=== PATIENT | male | born 1955 | race Caucasian/White ===

== ENCOUNTER 2017-12-03 07:30 | Inpatient (IN) | payer OTHER ==
--- NOTE | 2017-12-01 09:45 | Pre-op HX & Phy Repo 2 SIG ---
DATE OF ADMISSION: 12/03/2017 HISTORY OF PRESENT ILLNESS: The patient is a 62-year-old male in overall good health with a malfunctioning Kock pouch continent ileostomy with difficulty with intubation and incontinence. This has been progressive during the past year. He does not have symptoms of pouchitis, but must intubate every two hours and during the night to help decrease the incontinence. His output is variable in consistency. He also has a parastomal hernia. The patient developed ulcerative colitis at age 15 in 1969. In 1988 he underwent total colectomy and creation of a Kock pouch. He later developed incontinence and in 1996 underwent surgery to repair the Nipple valve with a mesh sling. In 2001 he underwent resection of his original Kock pouch because of recurrent incontinence and a new pouch was created with another mesh sling. In 2002, he underwent revision of the stoma for stricture. All of these operations were done in [place]. In 2009 he was operated on here with creation of a new valve and stoma with preservation of the Kock pouch and temporary catheter gastrostomy. He had, at that time, new complete slipping of the valve of the Kock pouch. Following that surgery, the patient became aware of a bulge above the stoma approximately one year later. This has progressed as well, but does not seem to be the cause of his difficulty with intubation and incontinence, which is likely a slipped valve. PAST MEDICAL HISTORY/MEDICATIONS: Flomax. ALLERGIES: None. OPERATIONS: See above with complete list at the end of this dictation. PHYSICAL EXAMINATION: VITAL SIGNS: A 5 feet 11 inches, 188 pounds. [place] and will be examined upon arrival and dictated separately. IMPRESSION: 1. Malfunctioning Kock pouch. 2. History of ulcerative colitis. 3. Parastomal hernia. 4. STATUS POST MULTIPLE ABDOMINAL OPERATIONS: 1. Proctocolectomy and Kock pouch in 1982. 2. Revision of Kock pouch slipped valve with mesh sling in 1996. 3. Resection of original Kock pouch and creation of new Kock pouch with mesh sling 2001. 4. Revision of stoma stenosis 2002. 5. Laparotomy with creation of new valve and stoma with preservation of Kock pouch 2009. PLAN: The patient will be admitted requiring a day in the hospital before surgery for insertion of a dual lumen PICC line, bowel prep, pouch endoscopy, continuous decompression of his Kock pouch and intravenous antibiotics started overnight with intravenous hydration on the day of admission continuing until surgery. I had a complete discussion with the patient regarding the nature of his condition, the nature of the pouch endoscopy, which does not require any anesthesia or sedation, and the need for surgical revision and repair of parastomal hernia. I will have a complete detailed discussion in person when he arrives from [place] of state. Aakash Saeed M.D. DR: LATRICE JOB#: [id number] CC: AMADOU
[~2017-12-03] VITALS: Ht 180.3 cm; Wt 80.7 kg
[2017-12-03] MEDS ORDERED: Lidocaine 1% Plain 30 ml INJ PRN (09:30)
[2017-12-03] MEDS ORDERED: Heparin 2000 units/Ns 1000ml INJ PRN (09:30)
--- NOTE | 2017-12-03 11:08 | Pre-Procedure Note/Attestation ---
Pre-Procedure Note/Attestation Complete Prior to Procedure Planned Procedure: not applicable Procedure Narrative: Kock pouch endoscopy Indications for Procedure Pre-Operative Diagnosis: malfunctioning Kock Pouch Attestation I attest that I discussed the nature of the procedure; its benefits; risks and complications; and alternatives (and the risks and benefits of such alternatives ), prior to the procedure, with the patient (or the patient's legal inside account representative). I attest that, if there was a reasonable possibility of needing a blood transfusion, the patient (or the patient's legal inside account representative) was given the [facility] standardized written summary, pursuant to the Jigar [place] Blood Safety Act ([place] Health and Safety Code # 1645, as amended). I attest that I re-evaluated the patient just prior to the surgery and that there has been no change in the patient's H&P, except as documented below:none Aakash Saeed MD Dec 03, 2017 11:08
[2017-12-03 11:42] LABS: BASOPHILS % (AUTO) 1.3 % (0.0-2.0); EOSINOPHILS % (AUTO) 0.4 % (0.0-3.0); HEMOGLOBIN 16.7 G/DL (14.2-18.0); LYMPHOCYTES % (AUTO) 15.1 % (20.0-45.0); MEAN CORPUSCULAR VOLUME 91 FL (80-99); MONOCYTES % (AUTO) 6.5 % (1.0-10.0); NEUTROPHILS % (AUTO) 76.7 % (45.0-75.0); PLATELET COUNT 261 K/UL (150-450); RED BLOOD COUNT 5.37 M/UL (4.70-6.10); RED CELL DISTRIBUTION WIDTH 12.5 % (11.6-14.8); WHITE BLOOD COUNT 6.4 K/UL (4.8-10.8)
[2017-12-03 11:51] LABS: ANION GAP 11 mmol/L (5-15); BLOOD UREA NITROGEN 14 mg/dL (7-18); CALCIUM 9.3 MG/DL (8.5-10.1); CARBON DIOXIDE 25 MMOL/L (21-32); CHLORIDE 102 MMOL/L (98-107); CREATININE 1.1 MG/DL (0.55-1.30); POTASSIUM 3.6 MMOL/L (3.5-5.1); SODIUM 138 MMOL/L (136-145)
--- NOTE | 2017-12-03 11:51 | Diagnostic Imaging Report ---
Indication: Cough Technique: One view of the chest Comparison: none Findings: Lungs are equivocally mildly hyperinflated. Lungs and pleural spaces are clear. Heart size is normal. Impression: No acute process
[2017-12-03 12:02] LABS: ALANINE AMINOTRANSFERASE 46 U/L (12-78); ALBUMIN 3.6 G/DL (3.4-5.0); ALBUMIN/GLOBULIN RATIO 0.9 (1.0-2.7); ALKALINE PHOSPHATASE 78 U/L (46-116); ASPARTATE AMINO TRANSFERASE 35 U/L (15-37); BILIRUBIN,TOTAL 1.1 MG/DL (0.2-1.0)
[2017-12-03 12:08] LABS: BILIRUBIN,DIRECT 0.2 MG/DL (0.0-0.3)
[2017-12-03 12:15] LABS: APPEARANCE,URINE CLEAR; BILIRUBIN, URINE NEGATIVE (NEGATIVE); GLUCOSE, URINE (UA) NEGATIVE (NEGATIVE); KETONES,URINE 3+ (NEGATIVE); LEUKOCYTE ESTERASE ,URINE NEGATIVE (NEGATIVE); NITRITE,URINE NEGATIVE (NEGATIVE); PH,URINE 6 (4.5-8.0); PROTEIN,URINE 2+ (NEGATIVE); UROBILINOGEN,URINE NORMAL MG/DL (0.0-1.0)
[2017-12-03 12:23] LABS: COLOR,URINE YELLOW
--- NOTE | 2017-12-03 13:23 | Brief Operative Note ---
Immediate Post Operative Note Operative Note Pre-op Diagnosis: malfunctioning Kock Pouch Procedure: Kock pouch endoscopy Post-op Diagnosis: partially slipped valve of Kock pouch Post-op Diagnosis: same as pre-op Findings: consistent w/pre-op dx studies Surgeon: antoni Anesthesia: other - none Specimen: none Complications: none Condition: stable Fluids: none Estimated Blood Loss: none Drains: other - 26 Fr Florence to Kock Pouch Implant(s) used?: No Aakash Saeed MD Dec 03, 2017 13:23
--- NOTE | 2017-12-03 14:08 | General Progress Note ---
Progress Note Progress Note H&P dictated. Small parastomal hernia of Kock pouch in RLQ. Kock pouch endoscopy: partially slipped valve, no pouchitis. Plan: Surgery in Aakash Bowen MD Dec 03, 2017 14:08
[2017-12-03] MEDS: Neomycin Sulfate 500mg Tab ORAL SCH ×3 (15:05→20:16)
--- NOTE | 2017-12-03 15:05 | Anethesia Preoperative Eval ---
Anesthesia Pre-op PMH/ROS General Date of Evaluation: Dec 03, 2017 Time of Evaluation: 16:25 Anesthesiologist: Madhavi ASA Score: ASA 2 Mallampati Score Class I : Soft palate, uvula, fauces, pillars visible Class II: Soft palate, uvula, fauces visible Class III: Soft palate, base of uvula visible Class IV: Only hard plate visible Mallampati Classification: Class II Surgeon: Darlin Diagnosis: Parastomal hernia, pouch stenosis Surgical Procedure: Parastomal herniorhhaphy Allergies: Coded Allergies: No Known Allergies (Verified Allergy, Unknown, 08/02/09) Medications: see eMAR Past Medical History Cardiovascular: Denies: HTN, CAD, OH, valve dz, arrhythmia, other Pulmonary: Denies: asthma, COPD, LOUISE, other Gastrointestinal/Genitourinary: Denies: GERD, CRI, ESRD, other Neurologic/Psychiatric: Denies: dementia, CVA, depression/anxiety, TIA, other Endocrine: Denies: DM, hypothyroidism, steroids, other HEENT: Denies: cataract (L), cataract (R), glaucoma, REDDING (L), REDDING (R), other Hematology/Immune: Denies: anemia, DVT, bleeding disorder, other Musculoskeletal/Integumentary: Denies: OA, RA, DJD, DDD, edema, other PMH Narrative: Ulcerative colitis PSxH Narrative: Multiple abdominal surgeries including colectomy, ileostomy with Kock pouch and revisions. Anesthesia Pre-op Phys. Exam Physician Exam Last Vital Signs Date Time Temp Pulse Resp B/P (MAP) Pulse Ox O2 Delivery O2 Flow Rate FiO2 12/03/17 12:29 Room Air Constitutional: NAD Neurologic: CN 2-12 intact Cardiovascular: RRR, no M/R/G Respiratory: CTA Gastrointestinal: S/NT/ND Airway Exam Mallampati Score: Class II MO: full ROM: full Teeth: intact Anesthesia Pre-op A/P Labs Hematology Test 12/03/17 11:10 White Blood Count 6.4 K/UL (4.8-10.8) Red Blood Count 5.37 M/UL (4.70-6.10) Hemoglobin 16.7 G/DL (14.2-18.0) Hematocrit 49.0 % (42.0-52.0) Mean Corpuscular Volume 91 FL (80-99) Mean Corpuscular Hemoglobin 31.1 PG (27.0-31.0) H Mean Corpuscular Hemoglobin Concent 34.0 G/DL (32.0-36.0) Red Cell Distribution Width 12.5 % (11.6-14.8) Platelet Count 261 K/UL (150-450) Mean Platelet Volume 5.8 FL (6.5-10.1) L Neutrophils (%) (Auto) 76.7 % (45.0-75.0) H Lymphocytes (%) (Auto) 15.1 % (20.0-45.0) L Monocytes (%) (Auto) 6.5 % (1.0-10.0) Eosinophils (%) (Auto) 0.4 % (0.0-3.0) Basophils (%) (Auto) 1.3 % (0.0-2.0) Coagulation Test 12/03/17 11:10 Prothrombin Time 11.0 SEC (9.30-11.50) Prothromb Time International Ratio 1.0 (0.9-1.1) Activated Partial Thromboplast Time 27 SEC (23-33) Chemistry Test 12/03/17 11:10 Sodium Level 138 MMOL/L (136-145) Potassium Level 3.6 MMOL/L (3.5-5.1) Chloride Level 102 MMOL/L (98-107) Carbon Dioxide Level 25 MMOL/L (21-32) Anion Gap 11 mmol/L (5-15) Blood Urea Nitrogen 14 mg/dL (7-18) Creatinine 1.1 MG/DL (0.55-1.30) Estimat Glomerular Filtration Rate > 60 mL/min (>60) Glucose Level 89 MG/DL (74-106) Calcium Level 9.3 MG/DL (8.5-10.1) Total Bilirubin 1.1 MG/DL (0.2-1.0) H Direct Bilirubin 0.2 MG/DL (0.0-0.3) Aspartate Amino Transf (AST/SGOT) 35 U/L (15-37) Alanine Aminotransferase (ALT/SGPT) 46 U/L (12-78) Alkaline Phosphatase 78 U/L (46-116) Total Protein 7.4 G/DL (6.4-8.2) Albumin 3.6 G/DL (3.4-5.0) Globulin 3.8 g/dL Albumin/Globulin Ratio 0.9 (1.0-2.7) L Studies Pre-op Studies: EKG Risk Assessment & Plan Assessment: Healthy male with h/o CAD (s/p OH and coronary stents) for revision and repair of parastomal hernia. Plan: GETA Status Change Before Surgery: Jigar Mcmahan MD Dec 03, 2017 15:05
--- NOTE | 2017-12-03 15:28 | Pre-Procedure Note/Attestation ---
Pre-Procedure Note/Attestation Complete Prior to Procedure Planned Procedure: not applicable Procedure Narrative: PICC Indications for Procedure Pre-Operative Diagnosis: needs hat model IV access Attestation I attest that I discussed the nature of the procedure; its benefits; risks and complications; and alternatives (and the risks and benefits of such alternatives ), prior to the procedure, with the patient (or the patient's legal advertising sales representative). I attest that, if there was a reasonable possibility of needing a blood transfusion, the patient (or the patient's legal advertising sales representative) was given the [facility] standardized written summary, pursuant to the Jigar [place] Blood Safety Act ([place] Health and Safety Code # 1645, as amended). I attest that I re-evaluated the patient just prior to the surgery and that there has been no change in the patient's H&P, except as documented below: Chris Mckeon MD Dec 03, 2017 15:28
--- NOTE | 2017-12-03 15:32 | Brief Operative Note ---
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
--- NOTE | 2017-12-03 15:36 | Diagnostic Imaging Report ---
Indications: Needs long-term IV access Technique: Ultrasound confirms patent compressible left basilic vein. Total sterile technique, including sterile probe cover and sterile gel, hat, mask, sterile gown, large sterile drape, and preparation with 2% chlorhexidine utilized. Local anesthesia with 1% lidocaine. Under real-time ultrasound guidance, puncture basilic vein using 21-gauge needle, documented and archived, passage 0.018 guidewire under direct fluoroscopy, which was used to determine appropriate catheter length, exchange for 5 Bulgarian peel-away sheath. 5 Bulgarian Bard dual-lumen power PICC cut to 43 cm. It was inserted through the peel-away sheath. Peel-away sheath and guidewire removed. Catheter fixed to the skin. Both catheter ports aspirated and flushed. Patient tolerated procedure well, without immediate complication. Digital radiograph documents satisfactory catheter tip position, at the cavoatrial junction. Total fluoroscopy time 0.2 minutes. Total dose area product 6. dGycm2 Total number of images: 1 Impression: Successful placement of left arm PICC under sonographic and fluoroscopic guidance, as described above.
[2017-12-03] MEDS: D5 1/2NS w/KCl 20mEq 1,000 ML IV SCH (17:49)
--- NOTE | 2017-12-03 18:14 | Procedure Note ---
DATE OF PROCEDURE: 12/03/2017 SURGEON: Aakash Saeed M.D. DATE OF ENDOSCOPY: 12/03/2017 ENDOSCOPIST: Aakash Saeed M.D. ANESTHESIA: None. SEDATION: None. PRE-ENDOSCOPY DIAGNOSES: 1. Malfunctioning Kock pouch continent ileostomy with difficulty with intubation and incontinence. 2. Small parastomal hernia. 3. History of ulcerative colitis. 4. Status post multiple abdominal operations including proctocolectomy and Kock pouch in 1982 with revision in 1996 and resection of original Kock pouch with creation of new Kock pouch in 2001 with creation of new valve and stoma in 2009. POST-ENDOSCOPY DIAGNOSES: 1. Malfunctioning Kock pouch continent ileostomy with difficulty with intubation and incontinence. 2. Small parastomal hernia. 3. History of ulcerative colitis. 4. Status post multiple abdominal operations including proctocolectomy and Kock pouch in 1982 with revision in 1996 and resection of original Kock pouch with creation of new Kock pouch in 2001 with creation of new valve and stoma in 2009. ENDOSCOPY PERFORMED: Kock pouch endoscopy. FINDINGS: A partially slipped nipple valve with minimal inflammation of pouch mucosa. DESCRIPTION OF PROCEDURE: The patient was positioned supine in the GI lab without any anesthesia or sedation given or required. Using a GIF-P140 endoscope, the stoma was entered and with some angulation, the pouch was entered. The distance to the tip of the valve was approximately 8 cm. The pouch was distensible. There was minimal evidence for inflammation or pouchitis and no ulcerations. Retroflexed views revealed a partially slipped nipple valve. Withdrawal views confirmed the above findings. Following the endoscopy, I could not insert a 28-Faroese Florence catheter into the pouch, but did insert a 26-Faroese Florence, taped to the skin, and connected to a gravity drainage bag. The patient tolerated the endoscopy well and will have surgery in the morning. Aakash Saeed M.D. DR: Anu JOB#: [id number] CC: AMADOU
[2017-12-03] MEDS: Tamsulosin 0.4mg cap ORAL SCH (20:16)
[2017-12-03] MEDS: Dyna-Hex 2% Top Sol 2oz TOPIC SCH (20:17)
[2017-12-03 20:34] VITALS: BP 124/74
[2017-12-03] MEDS: Ampicillin/Sulbactam Sod 3 GM in NS 110 ML IV SCH (23:54)
[2017-12-04] VITALS (17 sets, daily range): BP systolic 96–129; BP diastolic 51–77
[2017-12-04] MEDS ORDERED: Ketorolac 30mg Inj IV ONE (00:30)
[2017-12-04] MEDS: D5 1/2NS w/KCl 20mEq 1,000 ML IV SCH (04:09)
[2017-12-04] MEDS ORDERED: Heparin 5000 units/ml inj SUBQ SCH (05:30)
[2017-12-04] MEDS: Ampicillin/Sulbactam Sod 3 GM in NS 110 ML IV SCH ×3 (05:45→18:09)
--- NOTE | 2017-12-04 06:30 | Pre-op HX & Phy Repo 2 SIG ---
DATE OF ADMISSION: 12/03/2017 Please see previously dictated history. The [place] and is examined. PHYSICAL EXAMINATION: GENERAL: He is well developed, well nourished. VITAL SIGNS: Stable vital signs, 5 feet 11 inches, approximately 188 pounds. HEENT: Within normal limits. LUNGS: Clear. HEART: Regular rhythm. BREASTS: Without masses. ABDOMEN: Soft and flat. There is a long left paramedian incision with two small incisional hernias in the mid portion. The stoma of the Kock pouch continent ileostomy is low in the right lower quadrant with a very small parastomal hernia. GENITOURINARY: Testes and scrotum within normal limits. RECTAL: Status post proctectomy. EXTREMITIES: Without edema. NEUROLOGIC: Physiologic. IMPRESSION: 1. Malfunctioning Kock pouch continent ileostomy with difficulty with intubation and incontinence. 2. Small parastomal hernia. 3. History of ulcerative colitis. 4. STATUS POST MULTIPLE ABDOMINAL OPERATIONS: a. Proctocolectomy and Kock pouch in 1982. b. Revision of Kock pouch slipped valve with mesh sling in 1996. c. Resection of original Kock pouch and creation of new Kock pouch with mesh sling in 2001. d. Revision of stomal stenosis 2002 (all these operations were done in [place]) e. Laparotomy with creation of new valve and stoma with preservation of Kock pouch 2009. PLAN: The patient is going to undergo pouch endoscopy without requiring any sedation or anesthesia and an indwelling catheter will be left in his pouch to continuous drainage. He will have bowel prep and intravenous hydration via a dual lumen PICC line during the prep and intravenous antibiotics started overnight, continue in the morning of surgery as well as preoperative subcutaneous heparin. Operative findings will determine how extensive the surgery will be, whether catheter gastrostomy will be necessary as well. I had a full discussion with the patient regarding the surgery, indications, alternatives, options, and risks including bleeding, infection, injury to adjacent structures or organs, recurrent difficulties with his Kock pouch, etc. All questions have been answered. He understands and agrees to proceed. Aakash Saeed M.D. DR: LATRICE JOB#: [id number] CC: AMADOU
[2017-12-04] MEDS ORDERED: Midazolam 2mg/2ml Inj ONE (06:59)
[2017-12-04] MEDS ORDERED: fentaNYL 100 mcg/2 mL IV ONE (06:59)
[2017-12-04] MEDS ORDERED: Propofol 200mg/20ml IV ONE ×2 (07:08→07:11)
[2017-12-04] MEDS ORDERED: Lidocaine 1% MPF 10mg/ml 5ml ONE (07:08)
[2017-12-04] MEDS ORDERED: Sodium Chloride 10ml vial INJ ONE (07:08)
--- NOTE | 2017-12-04 07:09 | Pre-Procedure Note/Attestation ---
Pre-Procedure Note/Attestation Complete Prior to Procedure Planned Procedure: not applicable Procedure Narrative: Revision of Kock Pouch and repair parastomal hernia Indications for Procedure Pre-Operative Diagnosis: malfunctioning Kock Pouch and parastomal hernia Attestation I attest that I discussed the nature of the procedure; its benefits; risks and complications; and alternatives (and the risks and benefits of such alternatives ), prior to the procedure, with the patient (or the patient's legal franchise sales representative). I attest that, if there was a reasonable possibility of needing a blood transfusion, the patient (or the patient's legal franchise sales representative) was given the [facility] Services standardized written summary, pursuant to the Jigar [place] Blood Safety Act ([place] Health and Safety Code # 1645, as amended). I attest that I re-evaluated the patient just prior to the surgery and that there has been no change in the patient's H&P, except as documented below:none Aakash Saeed MD Dec 04, 2017 07:09
[2017-12-04] MEDS ORDERED: Triple abx Irrig 1000ml IRRIG ONE (07:30)
[2017-12-04] MEDS ORDERED: NS Irrig 1000ml IRRIG ONE (07:30)
[2017-12-04] MEDS ORDERED: LR 1000ml 1,000 ML IVLG SCH (08:23)
[2017-12-04] MEDS ORDERED: DiphenhydrAMINE 50mg/ml Inj IVP PRN ×2 (08:30→10:30)
[2017-12-04] MEDS ORDERED: HYDROmorphone 1mg/ml Carpuject IVP PRN (08:30)
[2017-12-04] MEDS ORDERED: LORazepam Inj 2mg/ml 1ml IV PRN (08:30)
[2017-12-04] MEDS ORDERED: Meperidine 50mg/ml Inj(FOR RIGORS ONLY) IVP PRN (08:30)
--- NOTE | 2017-12-04 08:33 | Immediate Post-Op Evaluation ---
Immediate Post-Op Evalulation Immediate Post-Op Evalulation Procedure: Sahni pouch revision and parastomal herniorrhaphy. Date of Evaluation: Dec 04, 2017 Time of Evaluation: 11:48 IV Fluids: 2000 Estimated Blood Loss: 50 Blood Pressure Systolic: 128 Blood Pressure Diastolic: 72 Pulse Rate: 75 Respiratory Rate: 16 O2 Sat by Pulse Oximetry: 99 Pain Score (1-10): 2 Nausea: No Vomiting: No Complications No complication Patient Status: awake, patent, extubated, none Hydration Status: adequate Drug: Patient on Unasyn and Flagyl...next dose at 12:00PM Jigar Hendrickson MD Dec 04, 2017 08:33
[2017-12-04] MEDS ORDERED: Rate Change PCA 1 Each MISC PRN (10:30)
[2017-12-04] MEDS ORDERED: PCA Education Pamphlet MISC ONE (10:30)
[2017-12-04] MEDS ORDERED: LORazepam 1mg tab SL PRN (10:30)
[2017-12-04] MEDS ORDERED: PCA HYDROmorphone 1mg/ml 30 ML IV PRN (10:30)
[2017-12-04] MEDS ORDERED: Acetaminophen 650mg/20.3ml ORAL PRN (10:30)
[2017-12-04] MEDS ORDERED: Naloxone 0.4mg/ml Inj IVP PRN (10:30)
--- NOTE | 2017-12-04 10:35 | Immediate Post-Op Evaluation ---
Immediate Post-Op Evalulation Immediate Post-Op Evalulation Procedure: Sahni pouch revision and parastomal herniorrhaphy. Date of Evaluation: Dec 04, 2017 Time of Evaluation: 10:34 IV Fluids: 1200 Blood Products: none Estimated Blood Loss: 50 Urinary Output: 600 Blood Pressure Systolic: 98 Blood Pressure Diastolic: 56 Pulse Rate: 58 Respiratory Rate: 20 O2 Sat by Pulse Oximetry: 99 Temperature (Fahrenheit): 97.6 Pain Score (1-10): 1 Nausea: No Vomiting: No Complications none Patient Status: reacts, patent, extubated, none Hydration Status: adequate Parviz Justin MD Dec 04, 2017 10:35
--- NOTE | 2017-12-04 10:35 | Brief Operative Note ---
Immediate Post Operative Note Operative Note Pre-op Diagnosis: malfunctioning Kock Pouch and parastomal hernia Procedure: Revision of Kock pouch and repair parastomal hernia Post-op Diagnosis: partially slipped valve of Kock pouch and small parastomal hernia Post-op Diagnosis: same as pre-op Findings: consistent w/pre-op dx studies Surgeon: antoni Brim Pouncing Machine Operator: corinne Anesthesiologist: dontrell Anesthesia: general Specimen: yes - stoma Complications: none Condition: stable Fluids: see anesthesia record Estimated Blood Loss: minimal Drains: other - 28 casiano to Kock pouch Implant(s) used?: No Aakash Saeed MD Dec 04, 2017 10:35
[2017-12-04] MEDS: D5 1/4NS w/KCl 20mEq 1,000 ML IV SCH (12:50)
[2017-12-04] MEDS ORDERED: Lidocaine 1% MPF 10mg/ml 5ml INJ SCH (15:49)
--- NOTE | 2017-12-04 16:54 | General Progress Note ---
Progress Note Progress Note AVSS Comfortable with HARDNESS INSPECTOR Dilaudid. Had some bleeding from stoma - inspected and no bleeding at this time. Abdomen soft Imp. Stable with ileus Aakash Saeed MD Dec 04, 2017 16:53
[2017-12-04] MEDS: PCA shift volume MISC SCH (19:00)
--- NOTE | 2017-12-04 19:06 | Cardiology Report ---
APPROVED REPORT EKG Measurement Heart [id number] CO [id number] Normal sinus rhythm Rightward axis Borderline ECG
--- NOTE | 2017-12-04 20:00 | Operative Note - Dictated ---
DATE OF OPERATION: 12/04/2017 SURGEON: Aakash Saeed M.D. DUST MILL OPERATOR SURGEON: Tito Gamble M.D. ANESTHESIOLOGIST: Jigar Hendrickson M.D. TYPE OF ANESTHESIA: General endotracheal. PREOPERATIVE DIAGNOSES: 1. Malfunctioning Kock pouch with difficulty with intubation and incontinence due to valve desussception 2. Small parastomal hernia. 3. History of ulcerative colitis. 4. Status post multiple abdominal operations. 4.1. Proctocolectomy and Kock pouch in 1982. 4.2. Revision of Kock pouch slipped valve with mesh sling in 1996. 4.3. Resection of original Kock pouch and creation of new Kock pouch with mesh sling in 2001. 4.4. Revision of stoma stenosis in 2002. (all these operations were done in [place]) 4.5. Laparotomy with creation of new valve and stoma with preservation of Kock pouch in 2009. POSTOPERATIVE DIAGNOSES: 1. Malfunctioning Kock pouch with difficulty with intubation and incontinence due to valve desussception 2. Small parastomal hernia. 3. History of ulcerative colitis. 4. Status post multiple abdominal operations. 4.1. Proctocolectomy and Kock pouch in 1982. 4.2. Revision of Kock pouch slipped valve with mesh sling in 1996. 4.3. Resection of original Kock pouch and creation of new Kock pouch with mesh sling in 2001. 4.4. Revision of stoma stenosis in 2002. (all these operations were done in [place]) 4.5. Laparotomy with creation of new valve and stoma with preservation of Kock pouch in 2009. OPERATION PERFORMED: Laparotomy with revision of Kock pouch continent ileostomy with stabilization of valve, creation of collar, and repair of parastomal hernia. DESCRIPTION OF PROCEDURE: The patient was taken to the operating room and under general endotracheal anesthesia with sequential compression device stockings and Florence catheter in place, and having received preoperative intravenous antibiotics and subcutaneous heparin, the patient was prepped and draped in the usual fashion. The stoma low in the right lower quadrant was initially covered with Tegaderm. The patient had a long left paramedian incision which was reopened from the umbilicus to the pubis achieving hemostasis with cautery. There were no adhesions in the abdominal cavity. The liver and gallbladder were normal to inspection and palpation. The small bowel was all normal. The Kock pouch was readily elevated out of the pelvis. A catheter was manipulated through the stoma into the pouch observing a redundant access segment. The pouch was distended with 350 mL of saline with afferent bowel manual occlusion. Upon removing the catheter, there was obvious incontinence. The catheter was reintroduced and the pouch decompressed. In order to fully mobilize the pouch, I circumscribed the stoma with a transversely oriented elliptical incision bringing it with its mesentery into the abdominal cavity. Along the anterior wall of the pouch between stay sutures of 3-0 silk, a pouch enterotomy was created. The nipple valve was grasped with [place] clamps and was reformed just placing it on stretch to 5.0 cm. Keeping this on stretch and the access segment on stretch, the 28-[place] Florence catheter readily went through the stoma into the pouch in and out. In view of this somewhat small-capacity pouch and in view of this being the patient's second pouch, I felt it was important to preserve the pouch and intestinal length. The nipple valve was placed on stretch and with two small enterotomies on each side of the main pouch enterotomy, the PI-55 stapling device with 4.8 mm catarina was introduced through the enterotomy and then into the lumen of the valve and then fired to staple the valve to the anterior pouch wall. This was done through both of the smaller enterotomies. Again, the 28[place] Florence catheter passed readily into the pouch through the stoma. The two small enterotomies were each closed with continuous 3-0 chromic locking suture followed by 3-0 silk imbricating suture. The pouch enterotomy was closed with continuous locking 2-0 chromic followed by imbricating 3-0 silk. Now the afferent bowel was manually occluded and with the 28-[place] Florence in the pouch, the pouch was distended with saline, but there was immediate leakage around the catheter. The catheter was removed and the pouch enterotomy reopened. It was clear that there was a portion of the apex of the pouch near the access segment that was redundant and was filling with contrast. There was already existing a mesenteric hiatus between the mesentery to the access segment and the pouch. Using a Lisa clamp, I brought the redundant apex of the pouch behind the access segment and sutured it to the pouch and to the access segment with multiple interrupted 3-0 silk sutures to create an intestinal collar. Now the pouch enterotomy was closed again with continuous 2-0 chromic locking sutures and the afferent bowel manually occluded with a 28-[place] Florence in the pouch. The pouch was distended with 300 mL of saline and there was no incontinence. The catheter was removed and there was still no incontinence. The catheter was reintroduced and the pouch decompressed. The enterotomy was closed with a second layer of imbricating 3-0 silk. After ascertaining that hemostasis was secure the pouch lay nicely back into the pelvis. The abdominal wall hiatus for the stoma was now narrowed superiorly with a [id number] #0 PDS suture to correct the small parastomal hernia, leaving just an adequate amount for the stoma and the access segment to come through with its mesentery. This was now brought through and placed on stretch. Redundancy of the access segment was excised and the stoma primarily matured with continuous 2-0 chromic locking sutures starting at the 3 and 9 o'clock positions. The redundant stoma was sent as specimen for pathology. A [id number] 2-0 chromic was placed at 12 o'clock to complete hemostasis. The pouch lay nicely in the pelvis with the catheter positioned in the apex and marked at the level of the stoma with a 3-0 silk and sutured to the skin with two sutures of 2-0 silk. The catheter was flushed and connected to a gravity drainage bag. The bowel loops were replaced anatomically. The pelvis was irrigated. Hemostasis was secure. Throughout the procedure the abdominal wall had been protected with antibiotic-soaked lap sponges. Now the left paramedian incision was closed with continuous #1 looped PDS, followed by antibiotic solution irrigation and the skin closed with catarina. Dry sterile dressings were applied. Final sponge and needle counts were correct. There was minimal blood loss. The patient tolerated the procedure well and left the operating room in good condition. Aakash Saeed M.D. DR: Anu JOB#: [id number] CC: AMADOU
[2017-12-04] MEDS: Tamsulosin 0.4mg cap ORAL SCH (21:24)
[2017-12-04] MEDS: Dyna-Hex 2% Top Sol 2oz TOPIC SCH (21:24)
[2017-12-05] VITALS: BP 115/65
[2017-12-05] MEDS: Ampicillin/Sulbactam Sod 3 GM in NS 110 ML IV SCH ×5 (00:09→23:41)
[2017-12-05] MEDS: D5 1/4NS w/KCl 20mEq 1,000 ML IV SCH ×3 (00:09→18:09)
[2017-12-05 04:00] VITALS: BP 111/61
[2017-12-05 06:53] LABS: EOSINOPHILS % (AUTO) 0.5 % (0.0-3.0); HEMATOCRIT 41.3 % (42.0-52.0); LYMPHOCYTES % (AUTO) 13.4 % (20.0-45.0); MEAN CORPUSCULAR VOLUME 91 FL (80-99); NEUTROPHILS % (AUTO) 74.2 % (45.0-75.0); PLATELET COUNT 154 K/UL (150-450); RED BLOOD COUNT 4.54 M/UL (4.70-6.10); WHITE BLOOD COUNT 5.1 K/UL (4.8-10.8)
[2017-12-05] MEDS: PCA shift volume MISC SCH ×2 (07:00→19:17)
[2017-12-05 07:19] LABS: ANION GAP 5 mmol/L (5-15); BLOOD UREA NITROGEN 8 mg/dL (7-18); CARBON DIOXIDE 27 MMOL/L (21-32); CHLORIDE 106 MMOL/L (98-107); CREATININE 0.8 MG/DL (0.55-1.30); POTASSIUM 3.8 MMOL/L (3.5-5.1); SODIUM 137 MMOL/L (136-145)
[2017-12-05] MEDS ORDERED: Naloxone 0.4mg/ml Inj IVP PRN (07:48)
--- NOTE | 2017-12-05 07:49 | General Progress Note ---
Progress Note Progress Note AVSS Comfortable with dilaudid DATA SYSTEMS ANALYST. Chest clear with decreased expansion. Cor - reg rhythm Abdomen mild soft distention, incision clean, stoma pink Overnight 12 hours: Urine 500 BCIR ileo 140 enteric Hgb 14 (16.7 pre-op) BMP - wnl Imp: Ileus Atelectasis Plan: NPO mobilize Aakash Saeed MD Dec 05, 2017 07:49
[2017-12-05 08:00] VITALS: BP 114/68
[2017-12-05] MEDS ORDERED: Rate Change PCA 1 Each MISC PRN ×2 (08:00→14:45)
[2017-12-05] MEDS ORDERED: PCA HYDROmorphone 1mg/ml 30 ML IV PRN (10:30)
[2017-12-05] MEDS ORDERED: DiphenhydrAMINE 50mg/ml Inj IVP PRN (10:30)
--- NOTE | 2017-12-05 11:18 | 48 Hour Post Anesthesia Eval ---
Post Anesthesia Evaluation Procedure: Sahni pouch revision and parastomal herniorrhaphy. Date of Evaluation: Dec 05, 2017 Time of Evaluation: 11:17 Blood Pressure Systolic: 106 0: 72 Pulse Rate: 68 Respiratory Rate: 20 Temperature (Fahrenheit): 97.6 O2 Sat by Pulse Oximetry: 98 Airway: patent Nausea: No Vomiting: No Pain Intensity: 3 Hydration Status: adequate Cardiopulmonary Status: stable Mental Status/LOC: patient returned to baseline Follow-up Care/Observations: n/a Post-Anesthesia Complications: none Follow-up care needed: N/A Parviz Justin MD Dec 05, 2017 11:18
[2017-12-05] MEDS ORDERED: Bacitracin 50000 Units Vial ONE (11:35)
[2017-12-05] MEDS ORDERED: NeoSporin Gu Irrig 1ml Amp IRRIG ONE (11:35)
[2017-12-05 12:00] VITALS: BP 103/63
[2017-12-05] MEDS ORDERED: PCA Morphine 1mg/ml 30 ML IV PRN (12:00)
[2017-12-05] MEDS ORDERED: PCA Morphine 30mg/30ml IV PRN (14:45)
[2017-12-05 16:00] VITALS: BP 115/65
[2017-12-05] MEDS ORDERED: NS 500ML ONE (17:21)
[2017-12-05] MEDS ORDERED: PCA shift volume MISC SCH (19:00)
[2017-12-05 20:00] VITALS: BP 118/62
[2017-12-05] MEDS: Tamsulosin 0.4mg cap ORAL SCH (20:19)
[2017-12-05] MEDS: Dyna-Hex 2% Top Sol 2oz TOPIC SCH (20:19)
[2017-12-05] MEDS: LORazepam 1mg tab SL PRN (23:50)
[2017-12-06] VITALS: BP 123/63
[2017-12-06 04:00] VITALS: BP 132/70
[2017-12-06] MEDS: D5 1/4NS w/KCl 20mEq 1,000 ML IV SCH (05:02)
[2017-12-06] MEDS: Ampicillin/Sulbactam Sod 3 GM in NS 110 ML IV SCH ×4 (05:03→23:42)
[2017-12-06 06:35] LABS: BASOPHILS % (AUTO) 0.6 % (0.0-2.0); EOSINOPHILS % (AUTO) 1.3 % (0.0-3.0); HEMATOCRIT 39.3 % (42.0-52.0); HEMOGLOBIN 13.5 G/DL (14.2-18.0); LYMPHOCYTES % (AUTO) 14.9 % (20.0-45.0); MEAN CORPUSCULAR VOLUME 89 FL (80-99); MONOCYTES % (AUTO) 12.7 % (1.0-10.0); NEUTROPHILS % (AUTO) 70.5 % (45.0-75.0); PLATELET COUNT 136 K/UL (150-450); RED BLOOD COUNT 4.39 M/UL (4.70-6.10); RED CELL DISTRIBUTION WIDTH 11.6 % (11.6-14.8); WHITE BLOOD COUNT 5.6 K/UL (4.8-10.8)
[2017-12-06 06:44] LABS: ANION GAP 6 mmol/L (5-15); BLOOD UREA NITROGEN 5 mg/dL (7-18); CARBON DIOXIDE 27 MMOL/L (21-32); CHLORIDE 104 MMOL/L (98-107); CREATININE 0.8 MG/DL (0.55-1.30); POTASSIUM 3.3 MMOL/L (3.5-5.1); SODIUM 137 MMOL/L (136-145)
[2017-12-06] MEDS: PCA shift volume MISC SCH ×2 (07:01→19:00)
[2017-12-06 08:00] VITALS: BP 142/79
[2017-12-06] MEDS ORDERED: PCA Morphine 1mg/ml 30 ML IV PRN ×3 (08:21→12:00)
[2017-12-06] MEDS: Potassium Chloride 40 MEQ in D5 1/4NS 1000ml 1,000 ML IV SCH ×2 (09:19→18:25)
[2017-12-06 11:30] VITALS: BP 97/55
[2017-12-06] MEDS ORDERED: Naloxone 0.4mg/ml Inj IVP PRN (11:48)
[2017-12-06] MEDS ORDERED: Morphine Sulfate 2mg/ml Inj IV PRN ×2 (12:00→13:30)
[2017-12-06] MEDS ORDERED: Rate Change PCA 1 Each MISC PRN ×3 (12:00)
[2017-12-06] MEDS ORDERED: Morphine Sulfate 4mg/ml Inj (IV USE ONLY) IV PRN (12:00)
--- NOTE | 2017-12-06 12:15 | General Progress Note ---
Progress Note Progress Note AVSS Now on morphine ADVOCACY DIRECTOR with less spasms but more nausea, not feeling well when using it. Ambulates in hallways Abdomen distended, soft, incision clean, stoma pink Urine 1450 BCIR ileo 220 enteric WBC 5600 Hgb 13.5 Platelets 136,000 K 3.3 Imp. Ileus Plan; NPO low-dose Toradol prn increase KCL in IV fluids Aakash Saeed MD Dec 06, 2017 12:15
[2017-12-06] MEDS ORDERED: Ketorolac 30mg Inj IV SCH (12:27)
[2017-12-06 16:00] VITALS: BP 127/72
[2017-12-06] MEDS ORDERED: NS Irrig 1000ml ONE (16:33)
[2017-12-06] MEDS ORDERED: Tubing IV Secondary IV ONE (16:33)
[2017-12-06 20:00] VITALS: BP 128/72
[2017-12-06] MEDS: Tamsulosin 0.4mg cap ORAL SCH (20:21)
[2017-12-06] MEDS: Dyna-Hex 2% Top Sol 2oz TOPIC SCH (20:21)
[2017-12-06] MEDS: LORazepam 1mg tab SL PRN (22:01)
[2017-12-07] VITALS: BP 153/78
[2017-12-07 04:00] VITALS: BP 125/73
[2017-12-07] MEDS: Ampicillin/Sulbactam Sod 3 GM in NS 110 ML IV SCH ×3 (05:01→17:48)
[2017-12-07] MEDS: Potassium Chloride 40 MEQ in D5 1/4NS 1000ml 1,000 ML IV SCH ×2 (05:01→15:01)
[2017-12-07 06:16] LABS: ANION GAP 5 mmol/L (5-15); BLOOD UREA NITROGEN 4 mg/dL (7-18); CARBON DIOXIDE 27 MMOL/L (21-32); CHLORIDE 108 MMOL/L (98-107); CREATININE 0.7 MG/DL (0.55-1.30); POTASSIUM 3.7 MMOL/L (3.5-5.1); SODIUM 139 MMOL/L (136-145)
[2017-12-07 06:31] LABS: BASOPHILS % (AUTO) 0.9 % (0.0-2.0); EOSINOPHILS % (AUTO) 2.9 % (0.0-3.0); HEMATOCRIT 39.1 % (42.0-52.0); HEMOGLOBIN 13.5 G/DL (14.2-18.0); LYMPHOCYTES % (AUTO) 21.1 % (20.0-45.0); MEAN CORPUSCULAR VOLUME 90 FL (80-99); MONOCYTES % (AUTO) 10.1 % (1.0-10.0); PLATELET COUNT 166 K/UL (150-450); RED BLOOD COUNT 4.34 M/UL (4.70-6.10); RED CELL DISTRIBUTION WIDTH 11.8 % (11.6-14.8); WHITE BLOOD COUNT 4.7 K/UL (4.8-10.8)
[2017-12-07] MEDS: PCA shift volume MISC SCH ×2 (07:26→19:27)
[2017-12-07 08:00] VITALS: BP 125/76
[2017-12-07] MEDS ORDERED: DiphenhydrAMINE 50mg/ml Inj IVP PRN (08:21)
[2017-12-07] MEDS ORDERED: Morphine Sulfate 2mg/ml Inj IV PRN (08:21)
[2017-12-07] MEDS ORDERED: Morphine Sulfate 4mg/ml Inj (IV USE ONLY) IV PRN (08:22)
[2017-12-07] MEDS ORDERED: Naloxone 0.4mg/ml Inj IVP PRN (08:22)
--- NOTE | 2017-12-07 08:50 | General Progress Note ---
Progress Note Progress Note AVSS Ambulates well. Abdomen slight distention, healing nicely Urine 3350 Kock pouch ileo 710 WBC 4700 Hgb 13.5 BMP - wnl Imp. Resolving ileus Plan: d/c urinary casiano now continue npo until distention resolved Aakash Saeed MD Dec 07, 2017 08:50
[2017-12-07] MEDS: Ketorolac 30mg Inj IV PRN ×2 (09:58→15:59)
[2017-12-07 11:59] VITALS: BP 117/72
[2017-12-07 16:00] VITALS: BP 127/72
[2017-12-07 20:00] VITALS: BP 121/69
[2017-12-07] MEDS: Dyna-Hex 2% Top Sol 2oz TOPIC SCH (20:22)
[2017-12-07] MEDS: Tamsulosin 0.4mg cap ORAL SCH (20:23)
[2017-12-08] VITALS: BP 120/76
[2017-12-08] MEDS: Ampicillin/Sulbactam Sod 3 GM in NS 110 ML IV SCH ×2 (00:05→06:00)
[2017-12-08] MEDS: Potassium Chloride 40 MEQ in D5 1/4NS 1000ml 1,000 ML IV SCH ×3 (00:18→20:39)
[2017-12-08] MEDS: LORazepam 1mg tab SL PRN (00:50)
[2017-12-08 04:00] VITALS: BP 125/72
[2017-12-08] MEDS: PCA shift volume MISC SCH ×2 (07:50→19:43)
[2017-12-08] MEDS ORDERED: Naloxone 0.4mg/ml Inj IVP PRN (07:57)
--- NOTE | 2017-12-08 07:59 | General Progress Note ---
Progress Note Progress Note AVSS Voiding well without Florence. Ambulates well Abdomen persistent mild distention, healing nicely Urine 2100 Kock pouch ileo 590 Imp. slowly resolving ileus Plan: D/c antibiotics continue NPO today Aakash Saeed MD Dec 08, 2017 07:59
[2017-12-08] MEDS ORDERED: DiphenhydrAMINE 50mg/ml Inj IVP PRN (08:21)
[2017-12-08] MEDS ORDERED: Morphine Sulfate 2mg/ml Inj IV PRN (08:21)
[2017-12-08] MEDS ORDERED: Morphine Sulfate 4mg/ml Inj (IV USE ONLY) IV PRN (08:22)
[2017-12-08 08:30] VITALS: BP 128/71
[2017-12-08 12:00] VITALS: BP 98/81
[2017-12-08] MEDS ORDERED: NS Irrig 1000ml ONE (14:58)
[2017-12-08 16:42] VITALS: BP 116/60
[2017-12-08 20:00] VITALS: BP 121/69
[2017-12-08] MEDS: Tamsulosin 0.4mg cap ORAL SCH (20:37)
[2017-12-08] MEDS: Dyna-Hex 2% Top Sol 2oz TOPIC SCH (20:37)
[2017-12-09] VITALS: BP 126/70
[2017-12-09] MEDS: LORazepam 1mg tab SL PRN ×2 (00:16→23:06)
[2017-12-09] MEDS ORDERED: PCA Morphine 1mg/ml 30 ML IV PRN (01:00)
[2017-12-09] MEDS ORDERED: Rate Change PCA 1 Each MISC PRN (01:15)
[2017-12-09 04:00] VITALS: BP 130/80
[2017-12-09 06:34] LABS: BASOPHILS % (AUTO) 1.6 % (0.0-2.0); HEMATOCRIT 41.4 % (42.0-52.0); HEMOGLOBIN 14.5 G/DL (14.2-18.0); LYMPHOCYTES % (AUTO) 29.5 % (20.0-45.0); MEAN CORPUSCULAR VOLUME 90 FL (80-99); NEUTROPHILS % (AUTO) 56.8 % (45.0-75.0); PLATELET COUNT 207 K/UL (150-450); RED CELL DISTRIBUTION WIDTH 11.4 % (11.6-14.8); WHITE BLOOD COUNT 4.4 K/UL (4.8-10.8)
[2017-12-09] MEDS: PCA shift volume MISC SCH (07:19)
[2017-12-09 07:26] LABS: ANION GAP 6 mmol/L (5-15); BLOOD UREA NITROGEN 6 mg/dL (7-18); CALCIUM 8.5 MG/DL (8.5-10.1); CARBON DIOXIDE 27 MMOL/L (21-32); CHLORIDE 106 MMOL/L (98-107); CREATININE 0.8 MG/DL (0.55-1.30); POTASSIUM 3.9 MMOL/L (3.5-5.1); SODIUM 138 MMOL/L (136-145)
[2017-12-09 08:00] VITALS: BP 118/65
[2017-12-09] MEDS: Potassium Chloride 40 MEQ in D5 1/4NS 1000ml 1,000 ML IV SCH ×3 (08:02→21:00)
[2017-12-09] MEDS ORDERED: Norco 5mg/325mg tab ORAL PRN (09:45)
--- NOTE | 2017-12-09 09:53 | General Progress Note ---
Progress Note Progress Note AVSS Feeling better. Abdomen soft, non-distended, healing well, stoma healing nicely Urine 2960 Kock pouch ileo 820 WBC 4400 hgb 14.5 BMP-wnl Imp. Ileus resolved Plan: clear liquid diet + ensure clear f/u labs decrease IV fluids maintain continuous drainage of Kock Pouch Continent Ileostomy Aakash Saeed MD Dec 09, 2017 09:53
[2017-12-09 12:00] VITALS: BP 139/74
[2017-12-09 16:00] VITALS: BP 116/75
[2017-12-09 20:00] VITALS: BP 113/65
[2017-12-09] MEDS: Dyna-Hex 2% Top Sol 2oz TOPIC SCH (20:44)
[2017-12-09] MEDS: Tamsulosin 0.4mg cap ORAL SCH (20:44)
[2017-12-10] VITALS: BP 121/64
[2017-12-10 04:00] VITALS: BP 130/77
[2017-12-10] MEDS: Potassium Chloride 40 MEQ in D5 1/4NS 1000ml 1,000 ML IV SCH (05:37)
[2017-12-10 06:41] LABS: BASOPHILS % (AUTO) 2.1 % (0.0-2.0); EOSINOPHILS % (AUTO) 4.2 % (0.0-3.0); HEMATOCRIT 39.1 % (42.0-52.0); HEMOGLOBIN 13.4 G/DL (14.2-18.0); LYMPHOCYTES % (AUTO) 27.5 % (20.0-45.0); MEAN CORPUSCULAR VOLUME 92 FL (80-99); NEUTROPHILS % (AUTO) 56.2 % (45.0-75.0); PLATELET COUNT 210 K/UL (150-450); RED BLOOD COUNT 4.26 M/UL (4.70-6.10); RED CELL DISTRIBUTION WIDTH 11.9 % (11.6-14.8); WHITE BLOOD COUNT 4.2 K/UL (4.8-10.8)
[2017-12-10 08:00] VITALS: BP 113/60
[2017-12-10 08:04] LABS: ANION GAP 4 mmol/L (5-15); BLOOD UREA NITROGEN 8 mg/dL (7-18); CALCIUM 8.5 MG/DL (8.5-10.1); CARBON DIOXIDE 27 MMOL/L (21-32); CHLORIDE 106 MMOL/L (98-107); CREATININE 0.8 MG/DL (0.55-1.30); POTASSIUM 3.9 MMOL/L (3.5-5.1); SODIUM 137 MMOL/L (136-145)
--- NOTE | 2017-12-10 09:12 | General Progress Note ---
Progress Note Progress Note AVSS Tolerating clear liquids with Ensure clear very well. Abdomen soft, flat, healing nicely Urine 3200 Kock pouch ileo 2200 WBC 4200 (down) BMP-wnl Imp. Improving Plan: Full liquid diet d/c IV fluids f/u labs re low WBC stool for C.diff toxin since large volume output Aakash Saeed MD Dec 10, 2017 09:12
[2017-12-10 12:00] VITALS: BP 110/62
[2017-12-10] MEDS ORDERED: Ketorolac 30mg Inj IV PRN (12:15)
[2017-12-10 16:00] VITALS: BP 116/64
[2017-12-10 20:00] VITALS: BP 118/67
[2017-12-10] MEDS ORDERED: Ascorbic Acid 500mg tab ORAL SCH (20:12)
[2017-12-10] MEDS: Dyna-Hex 2% Top Sol 2oz TOPIC SCH (20:21)
[2017-12-10] MEDS: Tamsulosin 0.4mg cap ORAL SCH (20:21)
[2017-12-10] MEDS: LORazepam 1mg tab SL PRN (23:15)
[2017-12-11] VITALS: BP 116/64
[2017-12-11 04:00] VITALS: BP 117/62
[2017-12-11 05:19] LABS: BASOPHILS % (AUTO) 1.6 % (0.0-2.0); EOSINOPHILS % (AUTO) 3.5 % (0.0-3.0); HEMOGLOBIN 15.4 G/DL (14.2-18.0); LYMPHOCYTES % (AUTO) 23.1 % (20.0-45.0); MEAN CORPUSCULAR VOLUME 89 FL (80-99); MONOCYTES % (AUTO) 8.2 % (1.0-10.0); NEUTROPHILS % (AUTO) 63.6 % (45.0-75.0); PLATELET COUNT 262 K/UL (150-450); RED BLOOD COUNT 4.82 M/UL (4.70-6.10); RED CELL DISTRIBUTION WIDTH 11.3 % (11.6-14.8); WHITE BLOOD COUNT 6.1 K/UL (4.8-10.8)
[2017-12-11 05:43] LABS: ANION GAP 6 mmol/L (5-15); BLOOD UREA NITROGEN 10 mg/dL (7-18); CALCIUM 9.2 MG/DL (8.5-10.1); CARBON DIOXIDE 26 MMOL/L (21-32); CHLORIDE 103 MMOL/L (98-107); CREATININE 0.9 MG/DL (0.55-1.30); SODIUM 135 MMOL/L (136-145)
[2017-12-11 08:00] VITALS: BP 110/65
--- NOTE | 2017-12-11 08:43 | General Progress Note ---
Progress Note Progress Note AVSS Had cramping after full liquid dinner which has resolved. Abdomen flat, healing nicely Urine 2400 Kock pouch ileo 2290 WBC now normal 6100 Hgb 15.4 BMP-wnl Imp. Improved but high volume ileostomy output Plan; BCIR low residue diet Maintain continuous drainage of Kock Pouch continent ileostomy C.diff pending - follow I&O closely Aakash Saeed MD Dec 11, 2017 08:43
[2017-12-11 12:00] VITALS: BP_SYST 122; BP_SYST 95; BP_DIAS 60; BP_DIAS 76
[2017-12-11] MEDS ORDERED: Ascorbic Acid 500mg tab ORAL PRN (15:30)
[2017-12-11 16:05] VITALS: BP 114/68
[2017-12-11 20:00] VITALS: BP 138/78
[2017-12-11] MEDS: Tamsulosin 0.4mg cap ORAL SCH (20:17)
[2017-12-11] MEDS: Dyna-Hex 2% Top Sol 2oz TOPIC SCH (20:17)
[2017-12-12 00:20] VITALS: BP 119/71
[2017-12-12 04:28] VITALS: BP 118/59
--- NOTE | 2017-12-12 07:36 | General Progress Note ---
Progress Note Progress Note AVSS Tolerating BCIR low residue diet with some cramping that is transient Abdomen soft, slightly distended, healing well urine 2149 Kock pouch ileo 1914 Imp. Large volume ileostomy effluent Plan; Continue BCIR diet f/u labs maintain continuous drainage of Kock pouch continent ileostomy may need IV fluids if ileostomy output continue high volume Aakash Saeed MD Dec 12, 2017 07:36
[2017-12-12 08:00] VITALS: BP 118/65
[2017-12-12 12:00] VITALS: BP 106/66
[2017-12-12 16:00] VITALS: BP 120/63
[2017-12-12] MEDS ORDERED: NS Irrig 1000ml ONE (18:03)
[2017-12-12 20:22] VITALS: BP 134/76
[2017-12-12] MEDS: Tamsulosin 0.4mg cap ORAL SCH (20:52)
[2017-12-12] MEDS: Dyna-Hex 2% Top Sol 2oz TOPIC SCH (20:52)
[2017-12-13] VITALS: BP 129/74
[2017-12-13] MEDS: LORazepam 1mg tab SL PRN ×2 (00:04→23:20)
[2017-12-13 04:00] VITALS: BP 106/63
[2017-12-13 06:27] LABS: BASOPHILS % (AUTO) 1.6 % (0.0-2.0); EOSINOPHILS % (AUTO) 3.7 % (0.0-3.0); HEMATOCRIT 41.3 % (42.0-52.0); HEMOGLOBIN 14.8 G/DL (14.2-18.0); LYMPHOCYTES % (AUTO) 25.4 % (20.0-45.0); MEAN CORPUSCULAR VOLUME 89 FL (80-99); MONOCYTES % (AUTO) 9.4 % (1.0-10.0); NEUTROPHILS % (AUTO) 59.9 % (45.0-75.0); PLATELET COUNT 277 K/UL (150-450); RED BLOOD COUNT 4.65 M/UL (4.70-6.10); RED CELL DISTRIBUTION WIDTH 11.3 % (11.6-14.8); WHITE BLOOD COUNT 5.7 K/UL (4.8-10.8)
[2017-12-13 06:44] LABS: ANION GAP 8 mmol/L (5-15); BLOOD UREA NITROGEN 13 mg/dL (7-18); CALCIUM 8.8 MG/DL (8.5-10.1); CARBON DIOXIDE 25 MMOL/L (21-32); CHLORIDE 105 MMOL/L (98-107); CREATININE 0.9 MG/DL (0.55-1.30); POTASSIUM 3.7 MMOL/L (3.5-5.1); SODIUM 138 MMOL/L (136-145)
[2017-12-13 08:00] VITALS: BP 115/60
--- NOTE | 2017-12-13 09:12 | General Progress Note ---
Progress Note Progress Note doing well with BCIR low residue diet Abdomen soft, flat. AgNO3 to hypertrophic granulations inferior stoma Urine 2225 Kock pouch ileo 820 WBC 5700 Hgb 13.8 BMP-wnl Imp. Improving Plan: Remove Kock Pouch catheter in AM and begin RN supervised self-intubations Aakash Saeed MD Dec 13, 2017 09:11
[2017-12-13 11:56] VITALS: BP 112/64
[2017-12-13 16:00] VITALS: BP 112/69
[2017-12-13 20:00] VITALS: BP 123/70
[2017-12-13] MEDS: Tamsulosin 0.4mg cap ORAL SCH (20:19)
[2017-12-13] MEDS: Dyna-Hex 2% Top Sol 2oz TOPIC SCH (21:01)
[2017-12-14] VITALS: BP 121/62
[2017-12-14 04:00] VITALS: BP 107/67
[2017-12-14 08:00] VITALS: BP 112/66
--- NOTE | 2017-12-14 08:43 | General Progress Note ---
Progress Note Progress Note AVSS Tolerating BCIR diet without cramping Abdomen soft. [place] d/c'd and steristrips applied - well healed Urine 2490 BCIR ileo 1140 Venegas Pouch catheter removed - reinserts readily. Stoma treated with AgNO3 again Imp. doing well Plan: RN supervised Venegas Pouch self-intubations q3h am to hs, and prn continue I&O If does well with self-intubations will discharge in AM Aaksah Saeed MD Dec 14, 2017 08:43
[2017-12-14 12:30] VITALS: BP 131/73
[2017-12-14 16:29] VITALS: BP 123/97
[2017-12-14 20:00] VITALS: BP 109/59
[2017-12-14] MEDS: Tamsulosin 0.4mg cap ORAL SCH (20:41)
[2017-12-14] MEDS: LORazepam 1mg tab SL PRN (22:03)
[2017-12-15] VITALS: BP 111/68
[2017-12-15 04:00] VITALS: BP 118/6
[2017-12-15 08:00] VITALS: BP 117/63
--- NOTE | 2017-12-15 08:27 | General Progress Note ---
Progress Note Progress Note Doing well with self-intubations of Venegas Pouch using 30Fr Medena catheter Abdomen soft, well healed incision and stoma Imp. Doing well Plan; discharge instructions/supplies/limitations provided/discussed Rx none f/u office next week Aakash Saeed MD Dec 15, 2017 08:27
--- NOTE | 2017-12-17 13:14 | Discharge Summary ---
Discharge Summary Hospital Course Date of Admission Dec 03, 2017 at 09:09 Date of Discharge Dec 15, 2017 at 10:45 Admitting Diagnosis malfunctioning Kock pouch Reason for Hospitalization: endoscopy and possible further surgery HPI Gurjit Abraham is a 62 year old male who was admitted on Dec 03, 2017 at 09:09 for Malfunctionong Kock Pouch Procedures s/p 12/03/[address] Saeed Kock pouch endoscopy 12/03/[address] Saeed s/p 12/04/[address] Saeed Laparotomy with revision of Kock pouch continent ileostomy with stabilization of valve, creation of collar, and repair of parastomal hernia. Hospital Course patient admitted small parastomal hernia of Kock pouch in RLQ. 12/03/17 s/p Kock pouch endoscopy with finding of partially slipped valve, no pouchitis. 12/04/17 s/p Laparotomy with revision of Kock pouch continent ileostomy with stabilization of valve, creation of collar, and repair of parastomal hernia Pain management with Dilaudid SHIPPING SUPERVISOR NPO abx IVF strict I/O Florence dc 12/07 low dose of Toradol added NPO continued until distention resolved e/lytes closely monitored, corrected as needed, increased KCL in IVF 12/08 voided well after Florence dc ambulated persistent distention, NPO status continued antibiotics dc 12/08 incentive spirometry encouraged q 1 hr while in the bed 12/09 ileus resolved started on clear liquid diet and Ensure IVF rate decreased continuous drainage of Kock pouch continent ileostomy maintained stoma healing 12/10 -advanced to full liquid diet dc IVF due to large volume output stool for C difficile was checked- negative 12/11- had cramping after full liquid dinner , resolved. abdomen flat, healing strict I/O continued persistent high volume ileostomy output started on BCIR low residue diet continuous drainage of Kock Pouch continent ileostomy maintained 12/12 -tolerated BCIR low residue diet with some cramping, transient abdomen soft, slightly distended, healing well still large volume ileostomy effluent BCIR diet continued continuous drainage of Kock pouch continent ileostomy maintained may need IV fluids if high volume ileostomy output continued 12/13- doing well with BCIR low residue diet 12/14- tolerated BCIR diet without cramping abdomen soft. catarina d/c and steri-strips applied - well healed Venegas Pouch catheter removed ; reinserted readily. stoma treated with AgNO3 started on RN supervised Venegas Pouch self-intubations q3h am to hs, and prn strict I&O continued 12/15 - doing well with self-intubations of Venegas Pouch using 30Fr Medena catheter abdomen soft, well healed incision and stoma discharge instructions/supplies/limitations provided/discussed f/u office next week stable for discharge home FINAL DIAGNOSES 1. Malfunctioning Kock pouch continent ileostomy with difficulty with intubation and incontinence. 2. Small parastomal hernia. 3. History of ulcerative colitis. 4. STATUS POST MULTIPLE ABDOMINAL OPERATIONS: a. Proctocolectomy and Kock pouch in 1982. b. Revision of Kock pouch slipped valve with mesh sling in 1996. c. Resection of original Kock pouch and creation of new Kock pouch with mesh sling in 2001. d. Revision of stomal stenosis 2002 (all these operations were done in [place]) e. Laparotomy with creation of new valve and stoma with preservation of Kock pouch 2009 5. s/p Kock pouch endoscopy 12/03/17 with finding of partially slipped valve of Kock pouch 6. s/p Laparotomy with revision of Kock pouch continent ileostomy with stabilization of valve, creation of collar, and repair of parastomal hernia 12/04/17 7. Ileus- resolved 8. Atelectasis Discharge Medications Medication Profile: No Active Prescriptions or Reported Meds Discharge Condition Upon Discharge: stable Discharge Disposition Patient was discharged to Home () Discharge Instructions Discharge Instructions Special Instructions I have been assigned to complete a D/C Summary on this account. I was not involved in the patient management Honey Roque NP Dec 17, 2017 13:14
== END 2017-12-15 10:45 | disposition home or self-care (01) | DRG 330 ==
LOC: 3E 09:09
PROC: 02HV33Z Insertion of Infusion Device into Superior Vena Cava, Percutaneous Approach (ICD-10-PCS; principal; 2017-12-03 13:05)
PROC: 0DJD8ZZ Inspection of Lower Intestinal Tract, Via Natural or Artificial Opening Endoscopic (ICD-10-PCS; principal; 2017-12-03 13:05)
PROC: 0D1B0Z4 Bypass Ileum to Cutaneous, Open Approach (ICD-10-PCS; 2017-12-04)
PROC: 0WQF0ZZ Repair Abdominal Wall, Open Approach (ICD-10-PCS; 2017-12-04)
DX: K94.13 Enterostomy malfunction (principal); K56.7 Ileus, unspecified; J98.11 Atelectasis; Y83.3 Surgical operation with formation of external stoma as the cause of abnormal reaction of the patient, or of later complication, without mention of misadventure at the time of the procedure; K43.5 Parastomal hernia without obstruction or gangrene; Z87.19 Personal history of other diseases of the digestive system
CPT/HCPCS: 36415; 36569; 71045; 76937; 80048; 80053; 81003; 82248; 85025; 85610; 85730; 86850; 86900; 86901; 87324; 93005; 94003; 94150; J2250; J2405